=== PATIENT | male | born 1945 | race Caucasian/White ===

== ENCOUNTER 2018-09-19 18:35 | Inpatient (IN) | payer MEDICARE ==
[~2018-09-19] VITALS: Ht 182.9 cm; Wt 90.7 kg
--- NOTE | ~2018-09-19 | EKG ---
[place], [place] ELECTROCARDIOGRAM REPORT NAME: ALEJANDRO ZAVALA UNIT #: [id number] ROOM: 509 DOCTOR: ARON DRAFT REPORT BIRTHDATE: [birth year] [facility] Test Date: 2018-09-19 Test Time: 19:27:13 Pat Name: ALEJANDRO ZAVALA Department: Room: 509 Gender: M Stock Manager: Smaia Lyon : 1945 Requested By: ARABELLA CHANDLER PA-C Order Number: [id number] Reading MD: Navin Grewal Measurements Intervals [place] Rate: 79 P: MO: 187 QRS: -58 QRSD: 115 T: 126 QT: 422 QTc: 484 Interpretive Statements Intermittent Atrial-paced LAD, consider left anterior fascicular block Abnormal T, consider ischemia, lateral leads Baseline wander in lead(s) V5 No previous ECG available for comparison Electronically Signed On 09-21-2018 11:00:24 PDT by Navin Grewal CM:EKGRPT:ELECTROCARDIOGRAM REPORT 26 1100 ARABELLA CHANDLER PA-C EPIPHANY DRAFT REPORT ARABELLA CHANDLER PA-C
[2018-09-19 18:35] VITALS: BP 154/70
[~2018-09-19 18:35] MED LIST: PREDNISONE10 MG PO
[2018-09-19 19:24] LABS: BASO % 0.1 % (0.0-1.0); EOS % 0.1 % (1.0-4.0); HEMATOCRIT 32.8 % (42.0-52.0); HEMOGLOBIN 10.2 g/dl (14.0-18.0); LYMPH # 0.4 10*3/uL (1.3-4.4); LYMPH % 5.7 % (27.0-41.0); MEAN CELL VOLUME 93.7 fl (80.0-94.0); MEAN CORPUSCULAR HGB 29.1 pg (27.0-31.0); MEAN CORPUSCULAR HGB CONC 31.1 g/dl (33.0-37.0); MEAN PLATELET VOLUME 9.4 fl (9.6-12.3); MONO # 0.2 10*3/uL (0.1-1.0); NEUT # 6.9 10*3/uL (2.3-7.9); PLATELET COUNT AUTOMATED 228 10*3/uL (130-400); RED CELL DISTRI WIDTH 15.5 % (0-14.5); WHITE BLOOD COUNT 7.6 10*3/uL (4.8-10.8)
[2018-09-19 19:41] LABS: ALKALINE PHOSPHATASE 156 U/L (45-117); BUN 20 mg/dl (7-24); CHLORIDE 98 mmol/L (98-107); CREATININE 0.85 mg/dL (0.70-1.30); POTASSIUM 3.6 mmol/L (3.5-5.1); SGOT/AST 14 IU/L (3-35); SGPT/ALT 37 U/L (12-78); SODIUM 138 mmol/L (136-145); TOTAL PROTEIN 5.9 gm/dL (6.4-8.2)
[2018-09-19 19:42] LABS: TROPONIN I < 0.015 ng/ml (<0.045)
[2018-09-19 19:51] LABS: BILIRUBIN NEGATIVE (NEGATIVE); BLOOD NEGATIVE (NEGATIVE); CLARITY CLEAR (CLEAR); COLOR YELLOW (YELLOW); GLUCOSE 3+ (NEGATIVE); KETONE TRACE (NEGATIVE); LEUKO ESTERASE NEGATIVE (NEGATIVE); NITRITE NEGATIVE (NEGATIVE); SPECIFIC GRAVITY <= 1.005 (1.005-1.030); UROBILINOGEN 0.2 E.U./dl (0.2-1.0)
[2018-09-19 19:57] LABS: BACTERIA TRACE; WBC 0-2 wbc/hpf (0-5)
[2018-09-19 19:59] LABS: ACT PARTIAL THROMBO TIME 25.1 SECONDS (20.8-31.5); INTERNATIONAL NORM RATIO 1.1 (2.0-3.5)
--- NOTE | 2018-09-19 22:57 | NUR ---
pt refused examination for wounds.
[2018-09-19 23:09] VITALS: BP 144/69
[2018-09-19 23:30] VITALS: BP 143/60
--- NOTE | 2018-09-19 23:30 | NUR ---
PATIENT REFUSEDF TO LAY BED FLAT TO GET ACCURATE WEIGHT. STATED HE WAS 200LBS
--- NOTE | 2018-09-19 23:30 | NUR ---
Time: 2329 A 72 year old MALE admitted to 5E under services of GERONIMO DAVISON DO. Pt. arrived via bed from ER. Chief complaint: CHANGE IN MENTAL STATUS. XANDER VENEGAS
[2018-09-20] MEDS ORDERED: BREO ELLIPTA 11 EACH INH (00:26)
[2018-09-20] MEDS ORDERED: DIGOX125 MCG PO (00:27)
[2018-09-20] MEDS ORDERED: CARAFATE1 G1 PO (00:27)
[2018-09-20] MEDS ORDERED: CARDIZEM CD180 MG PO (00:27)
[2018-09-20] MEDS ORDERED: ELIQUIS5 M1 PO (00:28)
[2018-09-20] MEDS ORDERED: DULCOLAX10 M1 R (00:28)
[2018-09-20] MEDS ORDERED: FLEET ENEMA 13133 ML R (00:30)
[2018-09-20] MEDS ORDERED: FLOMAX0.4 MG PO (00:43)
[2018-09-20] MEDS ORDERED: LANTUS SOL100 UNIT/1 SQ ×2 (00:43→00:44)
[2018-09-20] MEDS ORDERED: LASIX40 MG PO (00:44)
[2018-09-20] MEDS ORDERED: LIPITOR10 MG PO (00:45)
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
[2018-09-20] MEDS ORDERED: LOPRESSOR100 M1 PO (00:48)
[2018-09-20] MEDS ORDERED: MAG6464 MG PO (00:48)
[2018-09-20] MEDS ORDERED: MILK OF MA400 MG/5 M PO (00:49)
[2018-09-20] MEDS ORDERED: NOVOLOG10 ML SQ (00:50)
[2018-09-20] MEDS ORDERED: POTASSIUM CHLO20 MEQ PO (00:50)
[2018-09-20] MEDS ORDERED: PREDNISONE10 MG PO (01:16)
[2018-09-20] MEDS ORDERED: PROMETH-CODEIN 65 ML PO (01:17)
[2018-09-20] MEDS ORDERED: EXTRA STRENGTH500 MG PO (01:18)
[2018-09-20] MEDS ORDERED: ULTRAM50 MG PO (01:18)
[2018-09-20] MEDS ORDERED: PROTONIX40 MG PO (01:18)
--- NOTE | 2018-09-20 01:19 | NUR ---
MED LIST UPDATED PER REC PROVIDED BY THE [facility]
--- NOTE | 2018-09-20 06:34 | NUR ---
ALEJANDRO ZAVALA [id number] Please refer to the physician's history and physical for past medical history, comorbid conditions, and allergies. Diagnosis: METABOLIC ENCEPHALAOPATHY HYPERGLYCEMIA Dennis Score: 20,LOW OR NO RISK WOUND DESCRIPTIONS: Location of the wound: left upper arm Type of wound: skin tear Thickness: Partial Size: 7.0cm x 3.5cm x 0.1cm Tunneling: none Undermining: none Sinus Tract: none Presence of Exudate: Serosanguineous Amount: Moderate Color: Red Odor: None Periwound Skin Appearance: Normal Wound edges: approximated Pain (associated with wound): tender to touch How does patient state this happened? pt stated he fell on a sheet he stepped on with regular socks and hit it off the corner of his room last week. Surface the patient is resting on: Isoflex SKIN PREVENTION RECOMMENDATION: 1. Pressure redistribution support surface as appropriate 2. Elevate heels 3. Remove boots/TEDS every shift and reapply 4. Head of bed 30 degrees as tolerated 5. Assess nutrition and hydration 6. Manage moisture 7. Avoid the use of containment devices while in bed 8. Use absorptive products on surfaces limit layers of linens on bed 9. Turn and reposition every 1-2 hours in bed and every 1 hour in chair as tolerated 10. Weight shifts every 15 minutes while up in chair 11. Offloading with pillows or device to keep heels elevated off bed 12. Monitor skin at least every shift 13. Inspect under medical devices twice a day WOUND TREATMENT RECOMMENDATIONS: Cleanse left upper arm with nss and apply adaptic then 4x4 and lightly wrap with rolled gauze daily and prn for soiling.
[2018-09-20 06:42] LABS: BASO % 0.1 % (0.0-1.0); EOS % 0.2 % (1.0-4.0); HEMATOCRIT 30.9 % (42.0-52.0); HEMOGLOBIN 9.9 g/dl (14.0-18.0); LYMPH # 1.4 10*3/uL (1.3-4.4); LYMPH % 13.4 % (27.0-41.0); MEAN CELL VOLUME 91.4 fl (80.0-94.0); MEAN CORPUSCULAR HGB 29.3 pg (27.0-31.0); MEAN PLATELET VOLUME 8.6 fl (9.6-12.3); MONO % 9.7 % (3.0-9.0); NEUT # 7.9 10*3/uL (2.3-7.9); NEUT % 75.4 % (47.0-73.0); PLATELET COUNT AUTOMATED 207 10*3/uL (130-400); RED BLOOD COUNT 3.38 10*6/uL (4.50-5.90); RED CELL DISTRI WIDTH 15.6 % (0-14.5); WHITE BLOOD COUNT 10.5 10*3/uL (4.8-10.8)
[2018-09-20 07:07] LABS: BUN 14 mg/dl (7-24); CHLORIDE 99 mmol/L (98-107); CREATININE 0.56 mg/dL (0.70-1.30); POTASSIUM 2.9 mmol/L (3.5-5.1); SODIUM 138 mmol/L (136-145)
[2018-09-20 07:12] LABS: CHOLESTEROL 138 mg/dL (<200); HDL CHOLESTEROL 76 mg/dl (40-60); LDL CHOLESTEROL 43 mg/dL (9-159); TRIGLYCERIDES 96 mg/dl (<150); VLDL CHOLESTEROL 19 mg/dL (6-40)
[2018-09-20 07:18] LABS: THYROID STIM HORMONE (HS) 0.514 uIU/ml (0.358-4.75)
[2018-09-20 08:00] VITALS: BP 146/80
--- NOTE | 2018-09-20 10:04 | NUR ---
Dr. Sorenson notified of wound care recommendations.
[2018-09-20] MEDS ORDERED: DOXYCYCLINE100 M3 PO (10:55)
[2018-09-20 12:00] VITALS: BP 133/83
--- NOTE | 2018-09-20 12:10 | NUR ---
PT IS CURRENTLY A RESIDENT AT [facility]. WILL CONTINUE TO FOLLOW
--- NOTE | 2018-09-20 12:34 | NUR ---
Occupational Therapy referral received. Nursing reports that patient is to be discharged to long term today. No OT evaluation completed d/t d/c. Thank you. Mile Garbiel OTR/l
--- NOTE | 2018-09-20 12:37 | NUR ---
SW spoke with intake at [facility], pt is LTC and is able to return. ELOISE Chun
--- NOTE | 2018-09-20 12:49 | NUR ---
MELITON faxed over and update report to [facility] for pt who is returning. ELOISE Chun HIDE INSPECTOR,SECTION LABORER
--- NOTE | 2018-09-20 14:06 | NUR ---
SW spoke with nurse for a pepper picker time for pt to return to [facility]. Agreed time is 3:00PM with [facility]. ELOISE Chun MSW,FLYING SQUAD SALESPERSON
--- NOTE | 2018-09-20 14:07 | NUR ---
MELITON spoke with [facility] for a 3PM milk pickup truck driver to take pt Tawanna Baxter [phone] to [facility]. Pt has confusion at times, COPD DMII and asthma. ELOISE Chun JUNIOR TECHNICAL WRITER,EARLY CHILDHOOD SPECIAL EDUCATOR
--- NOTE | 2018-09-20 14:10 | NUR ---
SW called Joycelyn to let herknow return for pt will be at 3PM through [facility]. ELOISE Chun MSW,RELATIONS LIAISON
--- NOTE | 2018-09-20 14:18 | NUR ---
REPORT GIVEN TO [facility] AT [facility].
--- NOTE | 2018-09-20 14:50 | NUR ---
PATIENT DISCHARGED TO [facility]. TRANSFER PACKET GIVEN TO [facility]. IV DISCONTINUED.
[2018-11-19] MEDS ORDERED: PACERONE200 MG PO (09:43)
[2018-11-19] MEDS ORDERED: HALDOL5 MG/1 ML IM (10:08)
[2018-11-19] MEDS ORDERED: LEXAPRO10 MG PO (10:17)
[2018-11-19] MEDS ORDERED: PREDNISONE10 M1 PO (10:32)
[2018-11-26] MEDS ORDERED: Humalog SQ (10:31)
[2018-11-26] MEDS ORDERED: Bactroban Oint22 GM T (10:31)
[2018-11-26] MEDS ORDERED: Carafate1 GM PO (10:31)
== END 2018-09-20 14:50 | DRG 637 ==
LOC: ED 18:35 → EDHOLD 21:32 → 5E 21:32
PROVIDERS: Family Medicine; Physician Assistant; ADMIT Internal Medicine
DX: E11.65 Type 2 diabetes mellitus with hyperglycemia (principal); G93.41 Metabolic encephalopathy; J32.2 Chronic ethmoidal sinusitis; J34.1 Cyst and mucocele of nose and nasal sinus; D64.9 Anemia, unspecified; K21.9 Gastro-esophageal reflux disease without esophagitis; H91.13 Presbycusis, bilateral; R81 Glycosuria; H57.9 Unspecified disorder of eye and adnexa; I11.0 Hypertensive heart disease with heart failure; I50.9 Heart failure, unspecified; I48.91 Unspecified atrial fibrillation; E78.5 Hyperlipidemia, unspecified; Z88.2 Allergy status to sulfonamides; Z91.048 Other nonmedicinal substance allergy status; Z79.1 Long term (current) use of non-steroidal anti-inflammatories (NSAID); Z79.899 Other long term (current) drug therapy; Z86.73 Personal history of transient ischemic attack (TIA), and cerebral infarction without residual deficits; Z79.4 Long term (current) use of insulin